=== PATIENT | female | born 1995 | race Caucasian/White ===

== ENCOUNTER 2017-06-22 23:57 | Inpatient (IN) | payer BC ==
[~2017-06-22] VITALS: Ht 165.1 cm; Wt 55.8 kg
[2017-06-23 00:01] VITALS: BP 116/65
--- NOTE | 2017-06-23 00:08 | NUR ---
PT TAKEN TO BED 2
--- NOTE | 2017-06-23 00:09 | NUR ---
PATIENT PRESENTS TO ED WITH LEFT FLANK PAIN, SUPRAPUBIC PAIN, AND BURNING WITH URINATION 7/10, WITH FREQUENCY AND URGENCY X1 WK. PT IS FEBRILE, TEMP 100.4, AND TACKY AT 111 . PT STATES NAUESEA WITHOUT VOMITING; SKIN IS PINK/HOT/DRY; AAOX4 WITH EVEN AND STEADY GAIT; LUNGS CLEAR BL; HR EVEN AND REGULAR; PT DENIES ANY, CP, SOB, OR COUGH AT THIS TIME; PATIENT STATES PAIN OF 7/10 AT THIS TIME; VSS; PATIENT POSITIONED FOR COMFORT; COOLING MEASURES IMPLEMENTED; HOB ELEVATED; BEDRAILS UP X1; BED DOWN. ER MD MADE AWARE OF PT STATUS. CONTINUE TO MONITOR.
--- NOTE | 2017-06-23 00:12 | NUR ---
Dr. Hooper evaluating patient.
[2017-06-23] MEDS ORDERED: NACL 0.9% 2,000 ML IV ONE (00:30)
[2017-06-23] MEDS ORDERED: KETOROLAC 30 MG/ML VIAL IVP ONE (00:30)
[2017-06-23] MEDS ORDERED: cefTRIAXone 1,000 MG VIAL ONE (00:36)
[2017-06-23 01:00] LABS: HEMATOCRIT 35.6 % (36-48); HEMOGLOBIN 11.8 g/dL (12.0-16.0); MEAN CORPUSCULAR HEMOGLOBIN 31 pg (27-31); MEAN CORPUSCULAR HGB CONC 33 g/dL (33-37); MEAN CORPUSCULAR VOLUME 91.9 fL (80-94); PLATELET COUNT (AUTO) 211 K/uL (140-450); RED BLOOD CELL COUNT(AUTO) 3.87 MIL/uL (4.20-5.40); RED CELL DISTRIBUTION WIDTH 13.3 % (11.6-13.7)
[2017-06-23 01:06] LABS: APPEARANCE,URINE CLOUDY (CLEAR); BILIRUBIN,URINE NEGATIVE (NEGATIVE); BLOOD, URINE 3+ (NEGATIVE); COLOR,URINE YELLOW (YELLOW); LEUKOCYTE ESTERASE ,URINE 2+ (NEGATIVE); NITRITE, URINE POSITIVE (NEGATIVE); PH,URINE 7.5 (5.0-9.0); UGLUCOSE NEGATIVE (NEGATIVE)
--- NOTE | 2017-06-23 01:07 | NUR ---
PT SIGNED CONCENT FORM FOR CT WITH CONTRAST.
[2017-06-23 01:14] LABS: BARBITURATE, URINE NEG. ng/ml (NEG <=200); BENZODIAZEPINE, URINE NEG. ng/mL (NEG <=200); CANNABINOID, URINE NEG. ng/mL (NEG <=50); COCAINE, URINE NEG. ng/mL (NEG <=300); OPIATE, URINE POS. ng/mL (NEG <=2000); PHENCYCLIDINE SCREEN,URINE NEG. ng/mL (NEG <=25)
[2017-06-23 01:15] LABS: WBC,URINE TOO MANY TO COUNT /HPF (0-5)
[2017-06-23 01:16] LABS: RBC,URINE 3-10 (FEW) /HPF (0-5)
[2017-06-23 01:16] LABS: ANION GAP 10.4 (8-16); CARBON DIOXIDE 29.1 mmol/L (21-32); CREATININE 0.7 mg/dL (0.6-1.3); POTASSIUM 3.5 mmol/L (3.5-5.1)
[2017-06-23 01:19] LABS: ALBUMIN 3.6 g/dL (3.4-5.0); TOTAL BILIRUBIN 0.4 mg/dL (0.0-1.0)
[2017-06-23 01:21] LABS: EOSINOPHILS % (MANUAL) 1 % (0-4); LYMPHOCYTES % (MANUAL) 13 % (20-46); MONOCYTES % (MANUAL) 6 % (5-12)
[2017-06-23] MEDS ORDERED: IBUPROFEN 800 MG TAB ONE (01:27)
[2017-06-23] MEDS ORDERED: ACETAMINOPHEN 325 MG TAB PO PRN (02:20)
[2017-06-23] MEDS ORDERED: LORazepam 2 MG/ML VIAL IVP PRN (02:20)
[2017-06-23] MEDS ORDERED: HYDROcodone/APAP 5/325 MG 1 TAB TAB PO PRN (02:20)
[2017-06-23] MEDS ORDERED: DEXT 5% /NACL 0.9% 1,000 ML IV SCH (02:20)
[2017-06-23] MEDS ORDERED: ONDANSETRON 4 MG/2 ML VIAL IVP PRN (02:20)
[2017-06-23] MEDS ORDERED: CLON0.1T42 PO (02:23)
[2017-06-23] MEDS ORDERED: ACETAMINOPHEN 325 MG TAB PO ONE (02:35)
[2017-06-23] MEDS ORDERED: ACETAMINOPHEN EXTRA STRENGTH 500 MG TAB ONE (02:37)
[2017-06-23 02:55] VITALS: BP 116/68
--- NOTE | 2017-06-23 02:55 | NUR ---
PT ARRIVED ON THE UNIT FROM ER IN STABLE CONDITION. REPORT RECEIVED FROM DENI COHEN. NO S/S OF DISTRESS NOTED. PT AAOX4, ON ROOM AIR. IV TO R AC PATENT AND INTACT. SKIN INTACT, WARM AND DRY TO TOUCH. LUNGS CLEAR BILAT. BOWEL SOUNDS PRESENT. INITIAL ASSESSMENT COMPLETED, PLAN OF CARE DISCUSSED WITH PT, ALL SAFETY PRECAUTIONS MET, CALL LIGHT WITHIN REACH, WILL CONTINUE TO MONITOR
[2017-06-23] MEDS ORDERED: LEVOFLOXACIN 750 MG/D5W PREMIX 150 ML IV SCH (03:00)
--- NOTE | 2017-06-23 03:00 | NUR ---
PT FOUND IN HALLWAY STATING SHE WANTS TO LEAVE AND SIGN OUT AMA, BOYFRIEND STATES SHE IS REALLY AGITATED AND DOES NOT WANT TO BE HERE, PT ADMITS TO DOING METH RECENTLY.
--- NOTE | 2017-06-23 03:01 | NUR ---
PT STATING, "I DON'T UNDERSTAND WHY I HAVE TO BE HERE, I DON'T WANT TO BE HERE, WHY IS THE TV ON ITS SCARY, I DON'T UNDERSTAND THIS PLACE."
--- NOTE | 2017-06-23 03:05 | NUR ---
TALKED WITH PT AND EXPLAINED RISKS OF LEAVING, EXPLAINED THE IMPORTANCE OF STAYING, PT AGREES TO STAY
--- NOTE | 2017-06-23 03:05 | NUR ---
REPORT GIVEN AND CARE TRANSFERED TO [facility] ROOM 106A. TRANSPORTED VIA GURNEY WITH VSS.
--- NOTE | 2017-06-23 03:30 | NUR ---
ESTEFANI ASKED BOYFRIEND TO LEAVE BECAUSE THEIR IS A FEMALE ROOMMATE IN THE ROOM AND BOYFRIEND REFUSED TO ACKNOWLEDGE OR LOOK AT US
--- NOTE | 2017-06-23 04:11 | NUR ---
ADMINISTERED PYRIDIUM ORDERED
[2017-06-23] MEDS ORDERED: PHENAZOPYRIDINE 100 MG TAB PO SCH ×2 (04:15→09:00)
--- NOTE | 2017-06-23 04:15 | NUR ---
DANIEL MATTHEW FOR ORDERS FOR PYRIDIUM, WILL CARRY OUT NEW ORDERS Addendum: 06/23/17 at 0559 by Yvonne Tom RN TIME CORRECTION FOR 0400 AM
--- NOTE | 2017-06-23 04:30 | NUR ---
BOYFRIEND REFUSES TO LEAVE OR LOOK AT US. PT STATES HE IS WITH ME AND IS NOT LEAVING
--- NOTE | 2017-06-23 04:40 | NUR ---
PT REQUESTS TO BE DISCONNECTED FROM IV TO USE THE BATHROOM AND STATES, "I DID NOT GET MY PYRIDIUM YET, WHERE IS IT?" EXPLAINED TO PT I GAVE IT TO HER ALREADY AND EXPLAINED MEDICATION AND SIDE EFFECTS, PT VERBALIZED UNDERSTANDING
--- NOTE | 2017-06-23 06:50 | NUR ---
PT REQUESTING ALL IV ANTIBIOTICS BE GIVEN NOW, I EXPLAINED TO PT I CANNOT DO THAT AND IT IS NOT SAFE. PT STATES, "I DON'T UNDERSTAND WHY YOU CAN'T JUST GIVE ME ALL OF THEM, I DON'T WANT TO WAIT." I REINFORCED TEACHING TO PT, PT STATES SHE WILL TALK TO DR ABOUT BEING GIVEN ORAL ANTIBIOTICS.
--- NOTE | 2017-06-23 07:30 | NUR ---
REPORT GIVEN TO DAY NURSE FOR CONTINUITY OF CARE, PT IN STABLE CONDITION. NO S/S OF DISTRESS NOTED
--- NOTE | 2017-06-23 07:32 | NUR ---
RECEIVED BEDSIDE REPORT FROM BLOCK OUT MACHINE OPERATOR NURSE. PATIENT IS AWAKE, ALERT AND ORIENTEDX4. BOYFRIEND AT BEDSIDE. MS PATIENT. NO SIGNS OF DISTRESS ON ROOM AIR. STANDARD PRECAUTIONS. IV ON R AC 20G INFUSING D5%/NACL 0.9% AT 100ML/HR. IV SITE IS CLEAN, DRY AND INTACT. SKIN IS INTACT. PATIENT IS ABLE TO AMBULATE TO THE RESTROOM. PATIENT DX UTI. NO COMPLAINS OF PAIN AT THIS TIME. BED IN LOW POSITION. CALL LIGHT WITHIN REACH. WILL CONTINUE TO MONITOR THE PATIENT.
[2017-06-23 08:00] VITALS: BP 112/69
--- NOTE | 2017-06-23 08:06 | NUR ---
PATIENT HAS BEEN SCREENED AND CATEGORIZED LOW RISK. PATIENT WILL BE SEEN WITHIN 7 DAYS OF ADMISSION. 06/30/[address], [facility]
--- NOTE | 2017-06-23 09:10 | NUR ---
ADMINISTERED MORNING MED. PATIENT TOLERATED WELL. PATIENT COMPLAINS OF WANTING TO GO HOME. EXPLAINED THE RISKS OF GOING AMA. PATIENT VERBALIZED UNDERSTANDING. SHE WILL CALL ME USING THE CALL LIGHT IF SHE DECIDES TO GO AMA. WILL CONTINUE TO MONITOR THE PATIENT. BOYFRIEND AT BEDSIDE.
--- NOTE | 2017-06-23 09:12 | NUR ---
DR MATTHEW IS AWARE THAT PATIENT WANTS TO GO AMA. HE SAID IT WAS UP TO HER TO LEAVE AGAINST AMA, AND SHE WAS EXPLAINED THE RISKS OF AMA.
--- NOTE | 2017-06-23 09:35 | NUR ---
PATIENT STATED SHE WILL GO AMA. BOYFRIEND REMOVED PATIENTS IV. WILL GET PAPER WORK FOR AMA.
--- NOTE | 2017-06-23 09:45 | NUR ---
PATIENT ELOPED WITH BOYFRIEND. PATIENT LEFT WITH ARM BANDS, PATIENTS BOYFRIEND REMOVED IV EARLIER.
--- NOTE | 2017-06-23 09:50 | NUR ---
SECURITY IS AWARE THE PATIENT LEFT AT 0950. LINE THERAPIST GLO ALSO AWARE.
--- NOTE | 2017-06-27 12:41 | NUR ---
PER [employer] INTERN, , NO REVIEW NEEDED SHE SAID TO FAX REVIEW TO [facility] [phone] PHONE [phone]. FAXED ER REPORT AND H&P.
== END 2017-06-23 09:50 | disposition left against medical advice (07) | DRG 872 ==
LOC: MED 23:57 → MTU 06-23 02:17
PROVIDERS: ADMIT Preventive Medicine Preventive Medicine/Occupational Environmental Medicine; ATTEND Preventive Medicine Preventive Medicine/Occupational Environmental Medicine
DX: A41.9 Sepsis, unspecified organism (principal); N12 Tubulo-interstitial nephritis, not specified as acute or chronic; I10 Essential (primary) hypertension; K59.00 Constipation, unspecified; Z53.21 Procedure and treatment not carried out due to patient leaving prior to being seen by health care provider; Z90.49 Acquired absence of other specified parts of digestive tract; Z87.891 Personal history of nicotine dependence; Z88.5 Allergy status to narcotic agent
CPT/HCPCS: 36415; 80053; 80305; 81001; 83605; 85025; 87040; 87081; 87086; 87186; 96365; 96375; 99285; J0696; J1885; J1956; J2060; J7030; J7060; Q9967